=== PATIENT | female | born 1935 | race Caucasian/White ===

== ENCOUNTER 2016-08-24 22:20 | Emergency (ER) | payer MEDICARE, BC ==
[~2016-08-24] VITALS: Ht 152.4 cm; Wt 54.5 kg
[~2016-08-24 22:20] MED LIST: ACTONEL35 MG PO; ASPIRIN E.C. 8181 MG PO; B-121000 MCG PO; COMPAZINE5 M1 PO; ELAVIL25 MG PO; FOLIC ACID 40400 MCG PO; LUNESTA2 M1 PO; MAG-OX 400400 MG/TAB PO; MEPERIDINE HYDR50 MG PO; MULTI DELYN; MULTIPLE VITAMI1 CAP PO; NEURONTIN100 MG/CAP PO; NITRO TRANS0.2 MG/HR TD; NYSTAT-RX1 POW; OMEGA-31000 MG PO; PANCRELIPASE PO; PREVACID 30MG30 M1 PO; VITAMIN B6100 MG PO; VITAMIN C BUFF500 MG PO; ZANTAC150 MG PO; ZEASORB AF 2% TP
[2016-08-24 22:25] VITALS: TEMP 97.3
[2016-08-25 01:10] VITALS: BP 147/70; PULSE 56
== END 2016-08-25 01:10 | disposition home or self-care (01) ==
LOC: COL.ER 22:20
DX: S01.81XA Laceration without foreign body of other part of head, initial encounter (principal); S80.02XA Contusion of left knee, initial encounter; S80.01XA Contusion of right knee, initial encounter; S80.212A Abrasion, left knee, initial encounter; S80.211A Abrasion, right knee, initial encounter; W01.198A Fall on same level from slipping, tripping and stumbling with subsequent striking against other object, initial encounter; Z23 Encounter for immunization; Y92.009 Unspecified place in unspecified non-institutional (private) residence as the place of occurrence of the external cause

== ENCOUNTER 2016-09-02 12:40 | Emergency (ER) | payer MEDICARE, BC ==
[2016-09-02 12:53] VITALS: BP 104/62; PULSE 68; TEMP 97.6
== END 2016-09-02 13:15 | disposition home or self-care (01) ==
LOC: COL.ER 12:40
DX: Z48.02 Encounter for removal of sutures (principal)

== ENCOUNTER → 2017-08-05 | Outpatient (CLI) | payer MEDICARE, BC | LOC: COL.RAD 09:18 | DX: M48.07 Spinal stenosis, lumbosacral region (principal); M51.17 Intervertebral disc disorders with radiculopathy, lumbosacral region; M46.87 Other specified inflammatory spondylopathies, lumbosacral region | CPT/HCPCS: A9585 ==

== ENCOUNTER → 2019-08-19 | Outpatient (CLI) | payer MEDICARE, BC | LOC: ZLAB.ENT 15:12 | DX: G96.0 Cerebrospinal fluid leak (principal) ==

== ENCOUNTER 2020-07-19 08:04 | Inpatient (IN) | payer MEDICARE, BC ==
[~2020-07-19] VITALS: Ht 152.4 cm; Wt 49.5 kg
[2020-07-19] VITALS (8 sets, daily range): BP systolic 147–179; BP diastolic 40–64; PULSE 69–80; TEMP 97.9–98.1
[2020-07-19 10:21] LABS: BASO # 0.1 (0.0-0.2); BASO % 0.4 % (0.0-2.0); EOS % 0.1 % (0-4.0); GRAN # 10.5 (1.4-6.5); GRAN % 70.8 % (42.2-75.2); HEMATOCRIT 41.9 % (37.0-47.0); HEMOGLOBIN 14.3 g/dl (12.5-16.0); LYMPH # 2.9 (1.2-3.4); LYMPH % 19.4 % (20.0-51.0); MEAN CELL VOLUME 95 fl (80.0-100.0); MEAN CORPUSCULAR HEMOGLOBIN 32 pg (27.0-31.0); MEAN CORPUSCULAR HGB CONC 34 g/dl (33.0-37.0); MEAN PLATELET VOLUME 11.1 fl (7.4-10.4); MONO # 1.3 (0.1-0.6); MONO % 8.8 % (1.7-9.3); PLATELET COUNT 364 K/mm3 (130-400); RED BLOOD COUNT 4.42 M/mm3 (4.10-5.30); REDCELL DISTRIBUTION WIDTH-CV 13.9 % (11.5-14.5)
[2020-07-19 10:32] LABS: CALCIUM 9.2 mg/dL (8.4-10.2); CREATININE, serum 1.21 (0.52-1.25); POTASSIUM 3.9 mmol/L (3.4-5.0)
[2020-07-19 11:05] LABS: COLLECTION METHOD CATHETER
[2020-07-19 11:13] LABS: MUCOUS Present /lpf; PH 5 (5-8); SQUAMOUS EPITHELIAL 0-2 /hpf; URINE APPEARANCE Clear; URINE BACTERIA None Seen /hpf; URINE BILIRUBIN Negative (NEGATIVE); URINE BLOOD Negative (NEGATIVE); URINE COLOR Yellow; URINE GLUCOSE Negative (NEGATIVE); URINE KETONE Trace (NEGATIVE); URINE LEUKOCYTE ESTERASE Negative (NEGATIVE); URINE NITRATE Negative (NEGATIVE); URINE PROTEIN(semi-quant) 1+ (NEGATIVE); URINE RBC 0-2 /hpf; URINE UROBILINOGEN Negative (NEGATIVE); URINE WBC 0-2 /hpf
--- NOTE | 2020-07-19 17:37 | NUR ---
Patient to room via bed from PACU. Alert and oriented x4. Denies pain. Oriented to room.
--- NOTE | 2020-07-19 18:17 | NUR ---
Patient up to BSC. Attempts BM without success. Able to void 75mL pink urine. Returns to bed. No diet order in system. Spoke with Dr. Bueno and he says that patient can have regular diet and that she may be discharged when stable and he discussed this with the patient's daughter. Provided water, jello, and broth to the patient. Patient said she did not have a big appetite so did not want food. Denies needs at this time.
[2020-07-19] MEDS ORDERED: ULTRAM 50MG TAB50 MG PO (18:20)
[2020-07-19] MEDS ORDERED: CIPRO 500MG TA500 MG PO (18:20)
[2020-07-19] MEDS ORDERED: ZOFRAN 4MG T4 MG/TAB PO (18:21)
[2020-07-19] MEDS ORDERED: ESTRACE 1MG1 MG/TAB PO (18:21)
[2020-07-19] MEDS ORDERED: COZAAR100 MG PO (18:22)
[2020-07-19] MEDS ORDERED: NORCO 325 MG-51 TAB PO (18:22)
[2020-07-19] MEDS ORDERED: PREVACID 30MG30 M1 PO (18:23)
[2020-07-19] MEDS ORDERED: CATAPRES 0.1MG0.1 MG PO (18:23)
[2020-07-19] MEDS ORDERED: HYGROTON 2525 MG/TAB PO (18:24)
[2020-07-19] MEDS ORDERED: COMPAZINE 5MG TA5 MG PO (18:25)
--- NOTE | 2020-07-19 19:06 | NUR ---
PT RESTING IN BED, AWAKE AND WATCHING TV. IV FLUIDS INFUSING IN PICC R UPPER ARM. CALL LIGHT IN REACH. DENIES NEEDS AT THIS TIME.
--- NOTE | 2020-07-19 19:25 | NUR ---
PT REQUEST SOMETHING FOR PAIN ALL ACROSS THE BLADDER RATED 9/10. TORADOL 15MG IV GIVEN SLOW IV PUSH ORDERED. WILL CONTINUE TO MONITOR.
--- NOTE | 2020-07-20 02:02 | NUR ---
DR METCALF NOTIFIED AND PT HOME MEDICATIONS TO BE CONTINUED. GIVES ORDER FOR PT TO BE DISMISSED TO HOME WITH PICC LINE LEFT IN PLACE AND TO HAVE [employer]ER NOTIFY PT OF WHEN AND WHERE TO COME TO HAVE DRESSING CHANGED. WRAPPED PICC SITE WITH BHUMI WRAP AND GIVEN INSTRUCTIONS ON CARE AT HOME. WENT OVER DISCHARGE INSTRUCTIONS WITH PT AND PAPER SIGNED. UP TO BR, VOIDED WITHOUT ANY DIFFICULTY. EATS SMALL AMOUNT FOR SUPPER. AMBULATES IN CHO WITH STAND BY ASSIST. STEADY GAIT. PAIN MINIMAL. DR METCALF OFFICE WILL CALL PATIENT WITH NEXT APPT AND SURGERY SCHEDULE. PT CALLS DAUGHTER FOR RIDE HOME. ASSIST PT WITH CHANGING INTO CLOTHES. ASSIST TO W/C AND THEN TO ER TO MEET DAUGHTER FOR RIDE HOME. DISCHARGE INSTRUCTIONS GONE OVER WITH DAUGHTER AND PATIENT. VERBALLY AGREES TO DISCHARGE INSTRUCTIONS.
--- NOTE | 2020-07-23 08:35 | NUR ---
pantry worker contacted patient, at home, and confirmed that patient was discharged with a PICC, per patient request, as she has difficult to access veins. Patient states that she will be having upcoming surgery, that is unknown at this time. Worker advised that patient will need once weekly PICC care at [facility] via [facility]. Patient verbalized agreement to this plan and states her will be able to transport. Worker collaborated with Malaika, PICC nurse, and the [facility] regarding the above information. [facility] will contact patient, today, to schedule appointments. Worker advised that patient would not qualify for home health at this time.
== END 2020-07-20 | disposition home or self-care (01) | DRG 661 ==
LOC: COL.ER 08:04 → SURG 11:32 → COL.ER 15:10 → SURG 07-20
PROVIDERS: Emergency Medicine; Urology; ADMIT Hospitalist
PROC: 0T778DZ Dilation of Left Ureter with Intraluminal Device, Via Natural or Artificial Opening Endoscopic (ICD-10-PCS; principal; 2020-07-19 16:15)
PROC: BT1F1ZZ Fluoroscopy of Left Kidney, Ureter and Bladder using Low Osmolar Contrast (ICD-10-PCS; 2020-07-19 16:15)
PROC: 02HV33Z Insertion of Infusion Device into Superior Vena Cava, Percutaneous Approach (ICD-10-PCS; 2020-07-19 16:15)
DX: N20.1 Calculus of ureter (principal); I10 Essential (primary) hypertension; K21.9 Gastro-esophageal reflux disease without esophagitis; M19.90 Unspecified osteoarthritis, unspecified site; M81.0 Age-related osteoporosis without current pathological fracture; M10.9 Gout, unspecified; Z90.49 Acquired absence of other specified parts of digestive tract; Z90.89 Acquired absence of other organs; Z87.891 Personal history of nicotine dependence
CPT/HCPCS: C1751; C1769; C2617; J0690; J1100; J1885; J2405; J2704; J3010; Q9967

== ENCOUNTER 2020-07-26 09:00 | Outpatient (RCR) | payer MEDICARE, BC ==
[~2020-07-26] VITALS: Ht 152.4 cm; Wt 51.1 kg
--- NOTE | 2020-07-26 08:45 | NUR ---
Patient here for PICC cares. PICC intact right upper arm with sterile dressing change done with insertion site cleansed with chloraprep x 1, chlorhexidine impregnated disk applied, skin prep, stat lock, and tegaderm applied. cap not present on purple port and clamp not clamped. hub cleansed with alcohol x 1, new cap applied, and flushed with 10ml normal saline with good blood return noted. no signs or symptoms of IV complications noted. no concerns voiced. to return next week for cares. voiced understanding of instructions.
[~2020-07-26 09:00] MED LIST changes: +CATAPRES 0.1MG0.1 MG PO; +CIPRO 500MG TA500 MG PO; +COMPAZINE 5MG TA5 MG PO; +COZAAR100 MG PO; +ESTRACE 1MG1 MG/TAB PO; +ESTRACE0.5 MG PO; +HYGROTON 2525 MG/TAB PO; +NORCO 325 MG-51 TAB PO; +OMEGA-3 1000 MG1 CAP PO; +THE MEDICINE S200 M2 PO; +ULTRAM 50MG TAB50 MG PO; +ZOFRAN 4MG T4 MG/TAB PO
[2020-07-26] MEDS ORDERED: ATIVAN 0.50.5 MG/TAB PO (09:01)
[2020-07-26] MEDS ORDERED: CENTRUM SILVER CHEW PO (09:02)
[2020-07-26] MEDS ORDERED: MAG-OX 400400 MG/TAB PO (09:02)
[2020-07-26] MEDS ORDERED: NITRO-DUR0.4 MG/PAT TD (09:03)
[2020-07-26] MEDS ORDERED: NYSTATIN100000 U/1 TOP (09:04)
[2020-07-26] MEDS ORDERED: VITAMIN C500 MG PO (09:05)
[2020-07-26] MEDS ORDERED: CALCIUM CITRAT950 MG PO (09:05)
[2020-07-26 09:52] VITALS: BP 99/50; PULSE 49; TEMP 97.9
[2020-07-31] MEDS ORDERED: FLOMAX 0.40.4 MG/CAP PO (14:39)
[2020-07-31] MEDS ORDERED: COMPAZINE 5MG TA5 MG PO (14:40)
[2020-07-31] MEDS ORDERED: LEVSIN0.125 M1 PO (14:41)
[2020-07-31] MEDS ORDERED: ULTRAM 50MG TAB50 MG PO (16:48)
== END 2020-07-30 ==
LOC: EUO
DX: Z45.2 Encounter for adjustment and management of vascular access device (principal)

== ENCOUNTER 2020-07-31 12:25 | Day surgery (SDC) | payer MEDICARE, BC ==
[2020-07-31] VITALS (7 sets, daily range): BP systolic 134–164; BP diastolic 41–62; PULSE 54–75; TEMP 97.4–98.1
[~2020-07-31] VITALS: Ht 152.4 cm; Wt 49.5 kg
[~2020-07-31 12:25] MED LIST changes: +ATIVAN 0.50.5 MG/TAB PO; +CALCIUM CITRAT950 MG PO; +CENTRUM SILVER CHEW PO; +NITRO-DUR0.4 MG/PAT TD; +NYSTATIN100000 U/1 TOP; +VITAMIN C500 MG PO
[2020-07-31] MEDS ORDERED: FLOMAX 0.40.4 MG/CAP PO (14:39)
[2020-07-31] MEDS ORDERED: COMPAZINE 5MG TA5 MG PO (14:40)
[2020-07-31] MEDS ORDERED: LEVSIN0.125 M1 PO (14:41)
--- NOTE | 2020-07-31 16:25 | NUR ---
TO RM 4 PER CART FROM PACU. DROWSY AND TALKING WITH STAFF. DENIES PRESSURE ON THE LEFT SIDE. DENIES NAUSEA AND RECEIVED PHENERGAN IN PACU.
--- NOTE | 2020-07-31 16:40 | NUR ---
MORE AWAKE AND RECEIVED WATER. PATIENT TAKING SIPS.
[2020-07-31] MEDS ORDERED: ULTRAM 50MG TAB50 MG PO (16:48)
--- NOTE | 2020-07-31 16:55 | NUR ---
RECEIVED PEPSI AND CRACKERS.
--- NOTE | 2020-07-31 17:05 | NUR ---
ATE 1PKG OF CRACKERS AND SIPPING ON PEPSI. C/O INCREASING PAIN ON LEFT SIDE.
--- NOTE | 2020-07-31 17:35 | NUR ---
RECEIVED ULTRAM 50MG PER C/O PAIN.
--- NOTE | 2020-07-31 18:15 | NUR ---
RECEIVED DISCHARGE INSTRUCTIONS AND VERBALIZED UNDERSTANDING FLUSHED PURPLE PICC LINE WITH NS 10CC FOLLOWED BY HEMARIN 100UNITS. PATIENTS DAUGHTER CALLED AND PATIENT GETTING DRESSED.
--- NOTE | 2020-07-31 18:34 | NUR ---
DISCHARGED PER WC BY NURSING STAFF TO PRIVATE CAR IN CARE OF DAUGHTER JASIEL.
== END 2020-07-31 18:35 | disposition home or self-care (01) ==
LOC: SDCO 12:25
DX: N20.1 Calculus of ureter (principal); Z90.710 Acquired absence of both cervix and uterus; Z90.49 Acquired absence of other specified parts of digestive tract; Z87.891 Personal history of nicotine dependence; Z88.1 Allergy status to other antibiotic agents; Z88.5 Allergy status to narcotic agent; Z88.8 Allergy status to other drugs, medicaments and biological substances; I10 Essential (primary) hypertension; K21.9 Gastro-esophageal reflux disease without esophagitis; M19.90 Unspecified osteoarthritis, unspecified site
CPT/HCPCS: C1769; C1894; C2617; J0360; J1100; J1644; J2405; J2550; J2704; J3010; J7120; Q9967

== ENCOUNTER 2020-08-02 10:47 | Outpatient (RCR) | payer MEDICARE, BC ==
[~2020-08-02] VITALS: Ht 152.4 cm; Wt 50.0 kg
[~2020-08-02 10:47] MED LIST changes: +FLOMAX 0.40.4 MG/CAP PO; +LEVSIN0.125 M1 PO
[2020-08-02 11:07] VITALS: BP 105/49; PULSE 56; TEMP 97.6
== END 2020-08-02 18:18 | disposition home or self-care (01) ==
LOC: EUO 10:47
DX: Z95.9 Presence of cardiac and vascular implant and graft, unspecified (principal)

== ENCOUNTER → 2020-09-24 | Outpatient (CLI) | payer MEDICARE, BC | LOC: COL.RAD 12:43 | DX: R10.12 Left upper quadrant pain (principal); Z87.442 Personal history of urinary calculi; Z96.0 Presence of urogenital implants ==

== ENCOUNTER → 2023-09-30 | Outpatient (CLI) | payer MEDICARE, BC ==
[~2023-09-30] MED LIST changes: +Gadoterate 15 ML VIAL IV ONE
== END ==
LOC: COL.RAD 13:00
DX: J90 Pleural effusion, not elsewhere classified (principal); R10.84 Generalized abdominal pain
CPT/HCPCS: A9575